=== PATIENT | male | born 1945 | race Caucasian/White ===

== ENCOUNTER 2017-10-20 07:15 | Day surgery (SDC) | payer MEDICARE ==
[2017-10-15 11:31] LABS: BASOPHILS % (AUTO) 0.4 % (0-1); EOSINOPHILS # (AUTO) 0.3 X10'3 (0-0.9); EOSINOPHILS % (AUTO) 2.6 % (0-6); LYMPHOCYTES # (AUTO) 2.3 X10'3 (1.1-4.8); LYMPHOCYTES % (AUTO) 19.4 % (21-51); MEAN CORPUSCULAR HEMOGLOBIN 30.2 PG (27.0-31.0); MEAN CORPUSCULAR VOLUME 88.9 FL (78-98); MEAN PLATELET VOLUME 7.1 FL (7.4-10.4); MONOCYTES # (AUTO) 0.7 X10'3 (0-0.9); MONOCYTES % (AUTO) 6.2 % (2-12); NEUTROPHILS # (AUTO) 8.4 X10'3 (1.8-7.7); NEUTROPHILS % (AUTO) 71.4 % (42-75); PRE OP HEMATOCRIT 42.4 % (42.0-52.0); PRE OP HEMOGLOBIN 14.4 g/dL (14.0-17.9); PRE OP PLATELET COUNT 244 X10'3 (140-440); RED BLOOD COUNT 4.77 X10'6 (4.70-6.10); RED CELL DISTRIBUTION WIDTH 13.6 % (11.5-14.5)
[2017-10-15 11:33] LABS: CLARITY,URINE CLEAR (Clear); COLOR,URINE STRAW (Yellow); GLUCOSE, URINE NEGATIVE (Neg); KETONES,URINE NEGATIVE (Neg); LEUKOCYTE ESTERASE ,URINE NEGATIVE (Neg); NITRITES, URINE NEGATIVE (Neg); OCCULT BLOOD,URINE NEGATIVE (Neg); PH,URINE 6.5 (4.8-8.0); PROTEIN,URINE NEGATIVE (Neg)
[2017-10-15 11:36] LABS: UA COLLECTION TYPE CLN CATCH MIDSTREAM
[2017-10-15 11:49] LABS: ALBUMIN 3.7 G/DL (3.4-5.0); ALBUMIN/GLOBULIN RATIO 1.2 (1.1-1.5); ALKALINE PHOSPHATASE 66 IU/L (46-116); BLOOD UREA NITROGEN 22 MG/DL (7-18); BUN/CREATININE RATIO 21.8 (5.4-32.0); CALCIUM 9.4 MG/DL (8.5-10.1); CHLORIDE 105 MMOL/L (99-107); CREATININE 1.01 MG/DL (0.60-1.10); PRE OP ALT 30 U/L (30-65); PRE OP ANION GAP 9 (8-16); PRE OP AST 15 U/L (10-37); PRE OP BILIRUB, TOTAL 0.7 MG/DL (0.0-1.0); PRE OP GLUCOSE 171 MG/DL (70-104); PRE OP POTASSIUM 4.4 MMOL/L (3.4-5.1); PRE OP SODIUM 139 MMOL/L (135-145); TOTAL CARBON DIOXIDE 25.4 MMOL/L (24-32); TOTAL PROTEIN 6.7 G/DL (6.4-8.2); eGFR 73 ML/MIN
[~2017-10-20] VITALS: Ht 175.3 cm; Wt 93.9 kg
[2017-10-20] VITALS (13 sets, daily range): BP systolic 131–147; BP diastolic 51–85
[~2017-10-20 07:15] MED LIST: APIX5TAB3 PO; ATOR40TA PO; DOCUMENT DATE & TIME OF BETA-BLOCKER PO ONE; FINA5TAB11 PO; FLO0.4C PO; GLUC-133 PO; METF500T PO; MULT-1085 PO; NIA500ERT PO; SOTA80TA PO; cefazolin 1gm/NS 100mL 100 ML IV ONE; famotidine 20mg tablet PO ONE; ringers solution, lacted 1,000 ML IV SCH
[2017-10-20] MEDS ORDERED: albuterol 2.5 MG/3 ML nebule ONE (08:42)
[2017-10-20] MEDS ORDERED: albuterol 2.5 MG/3 ML nebule NEB PRN (08:45)
[2017-10-20] MEDS ORDERED: ringers solution, lacted 1,000 ML IV SCH (09:09)
[2017-10-20] MEDS ORDERED: morphine 2 MG/ML inj. syringe IV PRN ×2 (09:10)
[2017-10-20] MEDS ORDERED: meperidine/PF 25mg/ml syringe IV PRN ×3 (09:10)
[2017-10-20] MEDS ORDERED: ondansetron/PF 4mg/2ml inj IV PRN (09:10)
[2017-10-20] MEDS ORDERED: proCHLORperazine 10 MG/2 ml inj IV PRN (09:10)
[2017-10-20] MEDS ORDERED: ceFAZolin 1000mg inj ONE (09:37)
[2017-10-20] MEDS ORDERED: BUPIVAcaine/PF 2.5mg/ml (0.25%) 10ml vial ONE ×2 (09:39→10:33)
[2017-10-20] MEDS ORDERED: sevoflurane 250ml liquid IH ONE (10:05)
[2017-10-20] MEDS ORDERED: fentaNYL/PF 50MCG/1 ML 2ML syringe ONE (10:09)
[2017-10-20] MEDS ORDERED: midazolam 2 mg/2 ml injection ONE (10:09)
[2017-10-20] MEDS ORDERED: propofol inj 20 ML IV ONE (10:10)
[2017-10-20] MEDS ORDERED: LIDOcaine 1%/PF (10mg/ml) 5ml vial ONE (10:10)
[2017-10-20] MEDS ORDERED: ondansetron/PF 4mg/2ml inj ONE (11:05)
== END 2017-10-20 13:30 | disposition home or self-care (01) ==
LOC: PAS 07:15
PROVIDERS: ATTEND Surgery
DX: K40.90 Unilateral inguinal hernia, without obstruction or gangrene, not specified as recurrent (principal); E11.9 Type 2 diabetes mellitus without complications; E78.00 Pure hypercholesterolemia, unspecified; I48.91 Unspecified atrial fibrillation; N40.0 Benign prostatic hyperplasia without lower urinary tract symptoms; E66.3 Overweight; I25.2 Old myocardial infarction; Z87.891 Personal history of nicotine dependence; Z98.890 Other specified postprocedural states; Z79.01 Long term (current) use of anticoagulants; Z98.52 Vasectomy status; Z79.84 Long term (current) use of oral hypoglycemic drugs; Z79.899 Other long term (current) drug therapy; Z86.79 Personal history of other diseases of the circulatory system; Z68.30 Body mass index [BMI] 30.0-30.9, adult
CPT/HCPCS: 36415; 49505; 80053; 81003; 82948; 85025; 94640; A6449; C1781; J0690; J2001; J2250; J2405; J2704; J3010; J3490; J7120; A7000